=== PATIENT | male | born 1995 | race Caucasian/White ===

== ENCOUNTER 2019-12-31 20:44 | Emergency (ER) | payer SELFPAY ==
[2019-12-31 20:56] VITALS: BP 139/91
[2019-12-31] MEDS ORDERED: HYDROcodone/ACETAMINOPHEN 5-325 MG TAB PO ONE (21:23)
[2019-12-31] MEDS ORDERED: DIPHtheria,PERTUSSIS(ACELL),TETANUS VACCINE/PF 0.5 ML VIAL IM ONE (21:23)
[2019-12-31] MEDS ORDERED: LIDOCAINE (1%) 10 MG/1 ML VIAL 20 ML MDV INFILTRATI ONE (21:23)
[2019-12-31] MEDS ORDERED: BUPIVACAINE/PF (0.5%) 5 MG/1 ML 10 ML VIAL INFILTRATI ONE (21:23)
--- NOTE | 2019-12-31 22:03 | Emergency Department Report ---
- General Chief Complaint: Wound/Laceration Stated Complaint: HAND LAC Time Seen by Provider: 12/31/19 21:13 Source: patient Mode of arrival: Ambulatory Limitations: No Limitations - History of Present Illness Initial Comments: Patient is a 24-year-old male presents emergency room with complaints of a laceration to the left thumb that occurred approximately 30 minutes prior to ar rival. He states that he was trying to cut something while fixing a car with a knife and accidentally cut himself. He states that it was a heavy-duty pocket knife. He is able to move the finger without difficulty. He denies any numbness or weakness. He is unsure of his last tetanus immunization. He denies any past medical history allergies to medications. - Related Data Allergies Allergy/AdvReac Type Severity Reaction Status Date / Time No Known Allergies Allergy Unverified 12/31/19 20:59 ED Review of Systems ROS: Stated complaint: HAND LAC Other details as noted in HPI Comment: All other systems reviewed and negative ED Past Medical Hx - Past Medical History Previous Medical History?: No - Surgical History Past Surgical History?: No - Social History Smoking Status: Never Smoker Substance Use Type: Marijuana ED Physical Exam - General Limitations: No Limitations General appearance: alert, in no apparent distress - Head Head exam: Present: atraumatic, normocephalic - Eye Eye exam: Present: normal appearance - ENT ENT exam: Present: mucous membranes moist - Extremities Exam Extremities exam: Present: other (1.5 cm laceration present to the left dorsal thumb, FROM of the thumb, digits, and hand, no active bleeding,no muscle/tendon involvement, no foreign body identified, neurovascularly intact) - Neurological Exam Neurological exam: Present: alert, oriented X3 - Psychiatric Psychiatric exam: Present: normal affect, normal mood - Skin Skin exam: Present: warm, dry ED Course Vital Signs 12/31/19 20:49 Temperature 99.1 F Pulse Rate 81 Respiratory 18 Rate Blood Pressure 139/91 O2 Sat by Pulse 96 Oximetry - Laceration /Wound Repair Left Dorsal Finger Wound Location: upper extremity (left dorsal thumb) Wound Length (cm): 1 (1.5 cm total) Wound's Depth, Shape: superficial, linear Wound Explored: clean Irrigated w/ Saline (ccs): 500 Anesthesia: 0.5% Sensorcaine Volume Anesthetic (ccs): 5 (2.5 cc of 2% lidocaine without epinephrine and 2.5 cc of 0.5% bupivacaine) Wound Debrided: moderate Wound Repaired With: sutures Suture Size/Type: 4:0 Number of Sutures: 4 Layer Closure?: No Sterile Dressing Applied?: Yes Progress: Wound irrigated with saline and thoroughly scrubbed with Betadine, digital block performed using 2.5 cc of 2% lidocaine without epinephrine and 2.5 cc of bupivacaine mixed, Betadine prep again, sterile drapes applied, sterile gloves worn, 4-0 Prolene used for skin closure, 4 sutures placed, patient tolerated well, no complications, bleeding controlled, sterile dressing applied ED Medical Decision Making - Medical Decision Making Patient is a 24-year-old male presents emergency room with complaints of a laceration to the left thumb that occurred approximately 30 minutes prior to arrival. He states that he was trying to cut something while fixing a car with a knife and accidentally cut himself. He states that it was a heavy-duty pocket knife. He is able to move the finger without difficulty. He denies any numbness or weakness. He is unsure of his last tetanus immunization. He denies any past medical history allergies to medications. VSS. on exam: 1.5 cm laceration present to the left dorsal thumb, FROM of the thumb, digits, and hand, no active bleeding,no muscle/tendon involvement, no foreign body identified, neurovascularly intact. Wound irrigated with saline and thoroughly scrubbed with Betadine and repaired per procedure note. pt given tetanus immunization and pain medication while in the ED as he states he did not drive himself. advised pt Please keep area clean, dry, covered. May wash with soap and water and immediately dry. Sutures need to be removed in 10 to 14 days. No hot tub, no pool, no soaking in water. Follow-up with a primary care doctor for reexamination. Return to the emergency room for any new or worsening symptoms or any signs of infection. Critical care attestation.: If time is entered above; I have spent that time in minutes in the direct care of this critically ill patient, excluding procedure time. ED Disposition Clinical Impression: Laceration of left thumb Qualifiers: Encounter type: initial encounter Damage to nail status: without damage Foreign body presence: without foreign body Qualified Code(s): S61.012A - Laceration without foreign body of left thumb without damage to nail, initial encounter Disposition: DC-01 TO HOME OR SELFCARE Is pt being admited?: No Does the pt Need Aspirin: No Condition: Stable Instructions: Suture Care (ED), Laceration (ED) Additional Instructions: Please keep area clean, dry, covered. May wash with soap and water and immediately dry. Sutures need to be removed in 10 to 14 days. No hot tub, no pool, no soaking in water. Follow-up with a primary care doctor for reexa mination. Return to the emergency room for any new or worsening symptoms or any signs of infection. Referrals: TIMA SANTOS MD [Staff Physician] - 3-5 Days [facility] [Provider Group] - 3-5 Days Time of Disposition: 22:03 Print Language: ITALIAN
== END 2019-12-31 21:20 | disposition home or self-care (01) ==
LOC: ED 20:44
DX: S61.012A Laceration without foreign body of left thumb without damage to nail, initial encounter (principal); W26.0XXA Contact with knife, initial encounter; Y93.89 Activity, other specified; Y92.89 Other specified places as the place of occurrence of the external cause; Y99.8 Other external cause status
CPT/HCPCS: 90471; 90715; 99282